=== PATIENT | male | born 1970 | race Caucasian/White ===

== ENCOUNTER → 2019-12-02 | Outpatient (CLI) | payer OTHER ==
[~2019-12-02] MED LIST: AMOXICILLIN250 MG PO; AMOXICILLIN875 MG PO; ASPIR 8181 MG PO; FLEXERIL PO; KLOR-CON 1010 MEQ PO; LIDOCAINE VISC100 M1 MM; MEDROLDOSEPACK PO; NOHOMEMEDICATIONS; NORCO 5-325 TA1 EACH PO; PERCOCET 5-3251 EACH PO; ZOFRAN8 MG PO
== END ==
LOC: M.CT 08:55
DX: K76.0 Fatty (change of) liver, not elsewhere classified (principal); K42.9 Umbilical hernia without obstruction or gangrene